=== PATIENT | female | born 1945 | race Asian ===

== ENCOUNTER 2023-01-10 05:27 | Inpatient (IN) ==
[2023-01-10 05:43] LABS: Hematocrit 34.3 % (35-45); Hemoglobin 11.1 g/dL (11.5-14.3); Mean Corpuscular Hemoglobin 22.1 pg (27-33); Mean Corpuscular Hgb Conc 32.5 g/dL (31-36); Mean Platelet Volume 8.3 fL (7.5-11.2); Platelet Count 230 10^3/uL (150-450); Red Blood Count 5.04 10^6/uL (3.63-4.92); Red Cell Distribution Width 15.2 % (12-17); White Blood Count 7.9 10^3/uL (3.8-11.8)
[2023-01-10 05:51] LABS: Activated Partial Thrombo Time 27.5 seconds (26.0-38.0); INR 1.07 (0.88-1.18)
[2023-01-10 06:00] LABS: ALT 19 U/L (7-52); Albumin/Globulin Ratio 1.4 (1-3); Alkaline Phosphatase 38 U/L (35-149); Blood Urea Nitrogen 41 mg/dL (6-24); CO2 Carbon Dioxide 20 mmol/L (22-32); Calcium 8.7 mg/dL (8.6-10.3); Chloride 103 mmol/L (101-111); Cholesterol 122 mg/dL; Creatinine, Serum 1.21 mg/dL (0.51-0.95); Globulin 2.9 g/dL (2-4); Glucose 150 mg/dL (70-100); HDL Cholesterol 52.5 mg/dL; LDL Cholesterol 52 mg/dL; Sodium 136 mmol/L (135-145); Total Protein 6.9 g/dL (6.4-8.9); Triglycerides 88 mg/dL; eGFR CKD-EPI 46.7 (>60)
[2023-01-10] MEDS ORDERED: Iodixanol (CONTRAST) 320 MG/ML 100 ML SDV IV ONE (06:02)
[2023-01-10 06:06] LABS: High Sens Troponin Baseline 12 pg/mL (<15)
[2023-01-10 06:15] LABS: Microcytosis 1+
[2023-01-10 06:17] LABS: ABS Basophils 0.1 10^3/uL (0.0-0.1); ABS Lymphocytes 1.1 10^3/uL (1.0-4.8); ABS Monocytes 0.4 10^3/uL (0.0-0.9); ABS Neutrophils 6.3 10^3/uL (1.5-7.6); Eosinophil % 0.5 %; Lymphocyte % 14.4 %
[2023-01-10 06:37] LABS: Anion Gap 13 mmol/L (2-16)
[2023-01-10 06:56] LABS: Direct Bilirubin 0.1 mg/dL (0.03-0.18); Potassium Redraw 3.4 mmol/L (3.5-5.0)
[2023-01-10 08:15] LABS: Urine Appearance Clear; Urine Bilirubin Negative (Negative); Urine Blood Negative (Negative); Urine Color Straw; Urine Glucose 3+(>=500 mg/dL) (Negative); Urine Ketones Negative (Negative); Urine Nitrite Negative (Negative); Urine Protein Negative (Negative); Urine Specific Gravity 1.018 (1.002-1.030); Urine Urobilinogen Negative (Negative)
[2023-01-10 08:19] LABS: Urine Bacteria Absent (Absent); Urine Red Blood Cell Trace(0-2/hpf) (Absent); Urine Squamous Epithelial Cell Present (Absent); Urine White Blood Cell Trace(0-5/hpf) (Absent)
[2023-01-10] MEDS ORDERED: NS 0.9% 1000 ml BAG 1,000 ML IV ONE (11:00)
[2023-01-11] MEDS: Levothyroxine 100 MCG/5 ML VIAL IV SCH (05:34)
[2023-01-11 06:49] LABS: Calcium 9.7 mg/dL (8.6-10.3); Creatinine, Serum 0.86 mg/dL (0.51-0.95); Magnesium 1.8 mg/dL (1.9-2.7); Potassium 3.1 mmol/L (3.5-5.0); eGFR CKD-EPI 70.4 (>60)
[2023-01-11] MEDS: KCL 20 MEQ/100 ML IVPREMIX 20 MEQ/100 ML BAG IV SCH ×2 (14:41→18:01)
[2023-01-11] MEDS ORDERED: Metoprolol Tartrate 5 mg VIAL 5 ml VIAL (1 mg/ml) IV ONE (15:33)
[2023-01-11] MEDS ORDERED: Lactated Ringers 1000 ml BAG 1,000 ML IV ONE (16:42)
[2023-01-11] MEDS ORDERED: Diltiazem Infusion @ 5 MG/HR - (MEDTELE ONLY, no titration) IV SCH ×2 (18:20→20:45)
[2023-01-11 18:43] LABS: Calcium 9.4 mg/dL (8.6-10.3); Creatinine, Serum 0.87 mg/dL (0.51-0.95); Potassium 3.7 mmol/L (3.5-5.0); eGFR CKD-EPI 69.4 (>60)
[2023-01-12] MEDS ORDERED: Magnesium Sulfate 2 gm BAG 2 GM/50 ML BAG IVPB ONE (02:50)
[2023-01-12] MEDS ORDERED: Lactated Ringers 1000 ml BAG 1,000 ML IV ONE (04:06)
[2023-01-12] MEDS: Levothyroxine 100 MCG/5 ML VIAL IV SCH (06:11)
[2023-01-12 07:08] LABS: Hematocrit 36.6 % (35-45); Hemoglobin 11.8 g/dL (11.5-14.3); Mean Corpuscular Hemoglobin 22.2 pg (27-33); Mean Corpuscular Hgb Conc 32.3 g/dL (31-36); Mean Corpuscular Volume 68.7 fL (80-97); Mean Platelet Volume 8.2 fL (7.5-11.2); Platelet Count 208 10^3/uL (150-450); Red Blood Count 5.32 10^6/uL (3.63-4.92); Red Cell Distribution Width 15.4 % (12-17); White Blood Count 8.9 10^3/uL (3.8-11.8)
[2023-01-12 07:22] LABS: Calcium 9.2 mg/dL (8.6-10.3); Creatinine, Serum 0.95 mg/dL (0.51-0.95); Magnesium 2.3 mg/dL (1.9-2.7); Potassium 3.9 mmol/L (3.5-5.0); eGFR CKD-EPI 62.5 (>60)
[2023-01-13] MEDS: Levothyroxine 100 MCG/5 ML VIAL IV SCH (05:53)
[2023-01-14 06:33] VITALS: BP 161/77
== END 2023-01-14 10:31 | DRG 65 ==
LOC: EDHOLD 05:27 → ED 05:27 → SUATTDRO 14:40 → MEDTELE 14:57
PROVIDERS: ADMIT Student in an Organized Health Care Education/Training Program; ATTEND Internal Medicine

== ENCOUNTER 2023-01-14 09:24 | Inpatient (IN) ==
[2023-01-14] MEDS ORDERED: Senna TAB 8.6 mg TAB PO PRN (12:26)
[2023-01-14] MEDS ORDERED: Dextrose 50% Syringe 50 ml 25 GM/50 ML SYRINGE IV PUSH PRN (12:34)
[2023-01-14] MEDS: Heparin 5000 UNITS/ML 1 mL VIAL SUBCUT SCH (20:16)
[2023-01-15] MEDS: Empagliflozin 25 MG TAB PO SCH (09:42)
[2023-01-15] MEDS: Aspirin EC 81 mg TAB.EC (enteric coated) PO SCH (09:43)
[2023-01-15] MEDS: Heparin 5000 UNITS/ML 1 mL VIAL SUBCUT SCH ×2 (09:44→21:38)
[2023-01-16 06:10] LABS: ABS Basophils 0.1 10^3/uL (0.0-0.1); ABS Eosinophils 0.2 10^3/uL (0.0-0.5); ABS Lymphocytes 1.7 10^3/uL (1.0-4.8); ABS Monocytes 0.5 10^3/uL (0.0-0.9); ABS Neutrophils 3.1 10^3/uL (1.5-7.6); ABS Nucleated RBC 0.01 10^3/ul; Eosinophil % 4.3 %; Hemoglobin 11.2 g/dL (11.5-14.3); Lymphocyte % 30.2 %; Mean Corpuscular Hemoglobin 22.2 pg (27-33); Mean Corpuscular Hgb Conc 32.8 g/dL (31-36); Mean Corpuscular Volume 67.9 fL (80-97); Mean Platelet Volume 7.9 fL (7.5-11.2); Nucleated Red Blood Cells % 0.1 /100 WBC (0.0-0.4); Platelet Count 206 10^3/uL (150-450); Red Blood Count 5.02 10^6/uL (3.63-4.92); Red Cell Distribution Width 15.2 % (12-17); White Blood Count 5.6 10^3/uL (3.8-11.8)
[2023-01-16 06:31] LABS: Albumin/Globulin Ratio 1.3 (1-3); Calcium 9.4 mg/dL (8.6-10.3); Creatinine, Serum 0.86 mg/dL (0.51-0.95); Potassium 3.9 mmol/L (3.5-5.0); Total Bilirubin 0.8 mg/dL (0.2-1.0); eGFR CKD-EPI 70.4 (>60)
[2023-01-16] MEDS: Heparin 5000 UNITS/ML 1 mL VIAL SUBCUT SCH ×2 (09:28→20:36)
[2023-01-16] MEDS: Empagliflozin 25 MG TAB PO SCH (09:28)
[2023-01-16] MEDS: Aspirin EC 81 mg TAB.EC (enteric coated) PO SCH (09:28)
[2023-01-17] MEDS: Empagliflozin 25 MG TAB PO SCH (09:31)
[2023-01-18] MEDS: Empagliflozin 25 MG TAB PO SCH (07:58)
[2023-01-19] MEDS: Empagliflozin 25 MG TAB PO SCH (09:17)
[2023-01-20] MEDS: Empagliflozin 25 MG TAB PO SCH (07:33)
[2023-01-20 16:52] VITALS: BP 108/81
== END 2023-01-20 22:07 | disposition short-term general hospital (02) | DRG 65 ==
LOC: PMRU 12:00 → MEDTELE 01-20 20:31
PROVIDERS: ADMIT Physical Medicine & Rehabilitation; ATTEND Physical Medicine & Rehabilitation

== ENCOUNTER 2023-01-20 17:46 | Observation (INO) ==
[2023-01-20] MEDS ORDERED: Senna TAB 8.6 mg TAB PO PRN (17:58)
[2023-01-20] MEDS ORDERED: Dextrose 50% Syringe 50 ml 25 GM/50 ML SYRINGE IV PUSH PRN (18:29)
[2023-01-20 21:00] LABS: ABS Basophils 0.1 10^3/uL (0.0-0.1); ABS Eosinophils 0.1 10^3/uL (0.0-0.5); ABS Lymphocytes 1.9 10^3/uL (1.0-4.8); ABS Monocytes 0.5 10^3/uL (0.0-0.9); ABS Neutrophils 3.6 10^3/uL (1.5-7.6); ABS Nucleated RBC 0.01 10^3/ul; Hematocrit 37.5 % (35-45); Hemoglobin 12.3 g/dL (11.5-14.3); Lymphocyte % 30.8 %; Mean Corpuscular Hemoglobin 22.4 pg (27-33); Mean Corpuscular Hgb Conc 32.8 g/dL (31-36); Mean Corpuscular Volume 68.4 fL (80-97); Nucleated Red Blood Cells % 0.1 /100 WBC (0.0-0.4); Platelet Count 269 10^3/uL (150-450); Red Blood Count 5.48 10^6/uL (3.63-4.92); Red Cell Distribution Width 15.5 % (12-17); White Blood Count 6.1 10^3/uL (3.8-11.8)
[2023-01-20 21:18] LABS: Calcium 9.6 mg/dL (8.6-10.3); Creatinine, Serum 1.04 mg/dL (0.51-0.95); Potassium 4.2 mmol/L (3.5-5.0)
[2023-01-21 06:59] LABS: ABS Basophils 0.1 10^3/uL (0.0-0.1); ABS Eosinophils 0.1 10^3/uL (0.0-0.5); ABS Lymphocytes 2.1 10^3/uL (1.0-4.8); ABS Monocytes 0.6 10^3/uL (0.0-0.9); ABS Neutrophils 2.4 10^3/uL (1.5-7.6); Eosinophil % 2.3 %; Hematocrit 37.3 % (35-45); Hemoglobin 12.3 g/dL (11.5-14.3); Lymphocyte % 40.1 %; Mean Corpuscular Hemoglobin 22.5 pg (27-33); Mean Corpuscular Hgb Conc 32.9 g/dL (31-36); Mean Corpuscular Volume 68.5 fL (80-97); Nucleated Red Blood Cells % 0.1 /100 WBC (0.0-0.4); Platelet Count 259 10^3/uL (150-450); Red Blood Count 5.44 10^6/uL (3.63-4.92); Red Cell Distribution Width 15.1 % (12-17); White Blood Count 5.2 10^3/uL (3.8-11.8)
[2023-01-21 07:21] LABS: Calcium 9.1 mg/dL (8.6-10.3); Creatinine, Serum 0.93 mg/dL (0.51-0.95); Potassium 3.9 mmol/L (3.5-5.0); eGFR CKD-EPI 64.1 (>60)
[2023-01-21] MEDS: Empagliflozin 25 MG TAB PO SCH (07:38)
[2023-01-21 12:26] LABS: Urine Osmo 406 mOsm/kg (150-1150)
[2023-01-21] MEDS: Lactated Ringers 1000 ml BAG 1,000 ML IV SCH ×2 (14:40→21:22)
[2023-01-21 21:26] LABS: Calcium 9.2 mg/dL (8.6-10.3); Creatinine, Serum 0.9 mg/dL (0.51-0.95); Potassium 4.2 mmol/L (3.5-5.0); eGFR CKD-EPI 66.7 (>60)
[2023-01-21 22:09] LABS: High Sensitivity Troponin 1 Hr 15 pg/mL (<15)
[2023-01-21] MEDS ORDERED: Al Hydrox/Mg Hydrox/Simet LIQ 30 ML UDC PO ONE (23:17)
[2023-01-22 06:06] LABS: ABS Eosinophils 0.1 10^3/uL (0.0-0.5); ABS Lymphocytes 1.5 10^3/uL (1.0-4.8); ABS Monocytes 0.3 10^3/uL (0.0-0.9); ABS Nucleated RBC 0.01 10^3/ul; Eosinophil % 2.7 %; Hematocrit 32.8 % (35-45); Hemoglobin 10.6 g/dL (11.5-14.3); Lymphocyte % 38.1 %; Mean Corpuscular Hemoglobin 22.1 pg (27-33); Mean Corpuscular Hgb Conc 32.3 g/dL (31-36); Mean Corpuscular Volume 68.2 fL (80-97); Mean Platelet Volume 8.3 fL (7.5-11.2); Nucleated Red Blood Cells % 0.2 /100 WBC (0.0-0.4); Platelet Count 237 10^3/uL (150-450); Red Blood Count 4.81 10^6/uL (3.63-4.92); Red Cell Distribution Width 15.4 % (12-17)
[2023-01-22] MEDS: Lactated Ringers 1000 ml BAG 1,000 ML IV SCH (06:13)
[2023-01-22 06:21] LABS: Creatinine, Serum 0.74 mg/dL (0.51-0.95); Potassium 3.9 mmol/L (3.5-5.0); eGFR CKD-EPI 84.3 (>60)
[2023-01-22] MEDS: Empagliflozin 25 MG TAB PO SCH (08:50)
[2023-01-22 10:21] VITALS: BP 155/74
== END 2023-01-22 12:57 | disposition home or self-care (01) ==
LOC: SUATTDRO 17:49 → INTOOBSV 22:07 → MEDTELE 22:07
PROVIDERS: ADMIT Internal Medicine; ATTEND Internal Medicine

== ENCOUNTER 2024-04-14 12:30 | Inpatient (IN) ==
[2024-04-14] MEDS ORDERED: Prochlorperazine 5 mg/ml 2 ml VIAL (10 mg) ONE (13:56)
[2024-04-14] MEDS: Iodixanol 320 (CONTRAST) 200 ML SDV IV ONE (14:06)
[2024-04-14] MEDS: Prochlorperazine 5 mg/ml 2 ml VIAL (10 mg) IV ONE (14:12)
[2024-04-14 14:24] LABS: Activated Partial Thrombo Time 32.1 seconds (26.0-38.0); Hematocrit 40.1 % (35-45); Hemoglobin 12.3 g/dL (11.5-14.3); INR 1.2 (0.85-1.14); Mean Corpuscular Hemoglobin 21.3 pg (27-33); Mean Corpuscular Hgb Conc 30.6 g/dL (31-36); Mean Corpuscular Volume 69.6 fL (80-97); Mean Platelet Volume 8.5 fL (7.5-11.2); Platelet Count 203 10^3/uL (150-450); Red Blood Count 5.77 10^6/uL (3.63-4.92); White Blood Count 8.6 10^3/uL (3.8-11.8)
[2024-04-14 14:57] LABS: Albumin 4.6 g/dL (3.2-5.2); Albumin/Globulin Ratio 1.6 (1-3); C Reactive Protein 1.12 mg/L (<8.01); Calcium 9.3 mg/dL (8.6-10.3); Creatinine, Serum 1.11 mg/dL (0.51-0.95); Globulin 2.8 g/dL (2-4); HDL Cholesterol 45.7 mg/dL; Potassium 3.9 mmol/L (3.5-5.0); Total Bilirubin 0.9 mg/dL (0.2-1.0); Total Protein 7.4 g/dL (6.4-8.9); eGFR CKD-EPI 51.5 (>60)
[2024-04-14 15:35] LABS: ABS Lymphocytes 1.5 10^3/uL (1.0-4.8); ABS Monocytes 0.3 10^3/uL (0.0-0.9); ABS Neutrophils 6.7 10^3/uL (1.5-7.6); ABS Nucleated RBC 0.01 10^3/ul; Anisocytosis 1+; Eosinophil % 0.5 %; Lymphocyte % 17.6 %; Microcytosis 3+; Nucleated Red Blood Cells % 0.1 %/100WBC (0.0-0.8)
[2024-04-14 16:08] LABS: High Sensitivity Troponin 1 Hr 11 pg/mL (<15)
[2024-04-14] MEDS: niCARdipine 0.1MG/ML IVPREMIX 20 MG/200 ML BAG IV SCH (16:09)
[2024-04-14] MEDS ORDERED: Dextrose 50% Syringe 50 ml 25 GM/50 ML SYRINGE IV PUSH PRN (18:30)
[2024-04-14] MEDS ORDERED: Sulfur Hexaflouride MICROSPHR 25 MG VIAL IV PRN (20:23)
[2024-04-14 21:04] LABS: TSH Ultra Thyroid Stim Horm 0.57 mcIU/mL (0.34-5.60)
[2024-04-14] MEDS: Empagliflozin 25 MG TAB PO SCH (21:04)
[2024-04-15] MEDS: Aspirin EC 81 mg TAB.EC (enteric coated) PO ONE (00:28)
[2024-04-15 00:50] LABS: Calcium 9.5 mg/dL (8.6-10.3); Potassium 4.2 mmol/L (3.5-5.0); eGFR CKD-EPI 58.4 (>60)
[2024-04-15 06:47] LABS: Calcium 9.5 mg/dL (8.6-10.3); Creatinine, Serum 0.91 mg/dL (0.51-0.95); Potassium 3.9 mmol/L (3.5-5.0); eGFR CKD-EPI 65.4 (>60)
[2024-04-15 06:48] LABS: ABS Lymphocytes 1.3 10^3/uL (1.0-4.8); ABS Monocytes 0.9 10^3/uL (0.0-0.9); ABS Neutrophils 7.3 10^3/uL (1.5-7.6); Eosinophil % 0.2 %; Hematocrit 37.8 % (35-45); Hemoglobin 11.8 g/dL (11.5-14.3); Lymphocyte % 13.9 %; Mean Corpuscular Hemoglobin 21.5 pg (27-33); Mean Corpuscular Hgb Conc 31.1 g/dL (31-36); Mean Corpuscular Volume 69.1 fL (80-97); Mean Platelet Volume 8.7 fL (7.5-11.2); Platelet Count 199 10^3/uL (150-450); Red Blood Count 5.47 10^6/uL (3.63-4.92); Red Cell Distribution Width 15.8 % (12-17); White Blood Count 9.6 10^3/uL (3.8-11.8)
[2024-04-15 13:54] LABS: Urine Appearance Clear; Urine Bilirubin Negative (Negative); Urine Blood Negative (Negative); Urine Color Light-Yellow; Urine Glucose 4+ (>=1000 mg/dL) (Negative); Urine Ketones 1+ (Negative); Urine Nitrite Negative (Negative); Urine Protein Trace (Negative); Urine Urobilinogen Negative (Negative); Urine pH 5.5 (5.0-8.0)
[2024-04-15] MEDS: Digoxin IV 0.5 MG/2 ML AMP (0.25 MG/ML) IV SLOW PU ONE ×2 (16:06→17:07)
[2024-04-15] MEDS: Digoxin IV 0.5 MG/2 ML AMP (0.25 MG/ML) ONE (17:06)
[2024-04-15] MEDS: Aspirin EC 81 mg TAB.EC (enteric coated) PO SCH (21:00)
[2024-04-15] MEDS: Metoprolol Tartrate 5 mg VIAL 5 ml VIAL (1 mg/ml) IV ONE (21:57)
[2024-04-16] MEDS: Metoprolol Tartrate 5 mg VIAL 5 ml VIAL (1 mg/ml) IV ONE ×3 (06:44→16:41)
[2024-04-16 06:49] LABS: ABS Eosinophils 0.2 10^3/uL (0.0-0.5); ABS Lymphocytes 2.1 10^3/uL (1.0-4.8); ABS Monocytes 0.7 10^3/uL (0.0-0.9); ABS Neutrophils 5.5 10^3/uL (1.5-7.6); Eosinophil % 1.9 %; Hematocrit 42.8 % (35-45); Hemoglobin 13.6 g/dL (11.5-14.3); Lymphocyte % 24.3 %; Mean Corpuscular Hemoglobin 22.1 pg (27-33); Mean Corpuscular Hgb Conc 31.7 g/dL (31-36); Mean Corpuscular Volume 69.7 fL (80-97); Mean Platelet Volume 8.6 fL (7.5-11.2); Platelet Count 204 10^3/uL (150-450); Red Blood Count 6.15 10^6/uL (3.63-4.92); Red Cell Distribution Width 15.4 % (12-17); White Blood Count 8.4 10^3/uL (3.8-11.8)
[2024-04-16 07:11] LABS: Calcium 9.5 mg/dL (8.6-10.3); Creatinine, Serum 0.89 mg/dL (0.51-0.95); Potassium 4.2 mmol/L (3.5-5.0); eGFR CKD-EPI 67.1 (>60)
[2024-04-16] MEDS: Ondansetron 4 mg VIAL 2 MG/ML 2 ml VIAL IV PRN (13:07)
[2024-04-17 04:54] LABS: ABS Eosinophils 0.2 10^3/uL (0.0-0.5); ABS Lymphocytes 2.7 10^3/uL (1.0-4.8); ABS Monocytes 0.7 10^3/uL (0.0-0.9); ABS Neutrophils 4.7 10^3/uL (1.5-7.6); ABS Nucleated RBC 0.01 10^3/ul; Eosinophil % 2.3 %; Hematocrit 43.8 % (35-45); Hemoglobin 13.9 g/dL (11.5-14.3); Lymphocyte % 32.7 %; Mean Corpuscular Hgb Conc 31.7 g/dL (31-36); Mean Corpuscular Volume 69.4 fL (80-97); Mean Platelet Volume 8.4 fL (7.5-11.2); Nucleated Red Blood Cells % 0.1 %/100WBC (0.0-0.8); Platelet Count 214 10^3/uL (150-450); Red Blood Count 6.31 10^6/uL (3.63-4.92); Red Cell Distribution Width 15.8 % (12-17); White Blood Count 8.3 10^3/uL (3.8-11.8)
[2024-04-17 05:11] LABS: Calcium 9.2 mg/dL (8.6-10.3); Creatinine, Serum 0.88 mg/dL (0.51-0.95); Magnesium 1.9 mg/dL (1.9-2.7); Potassium 4.2 mmol/L (3.5-5.0); eGFR CKD-EPI 68.1 (>60)
[2024-04-17] MEDS ORDERED: Polyethylene Glycol 3350 17 GM PACKET PO PRN (17:40)
[2024-04-17] MEDS: Senna TAB 8.6 mg TAB PO SCH (18:11)
[2024-04-17] MEDS: Magnesium CITRATE LIQ 300 ML BTL PO ONE (18:27)
[2024-04-18 06:35] LABS: ABS Basophils 0.1 10^3/uL (0.0-0.1); ABS Eosinophils 0.2 10^3/uL (0.0-0.5); ABS Lymphocytes 2.5 10^3/uL (1.0-4.8); ABS Monocytes 0.6 10^3/uL (0.0-0.9); ABS Neutrophils 3.9 10^3/uL (1.5-7.6); ABS Nucleated RBC 0.01 10^3/ul; Eosinophil % 2.9 %; Hematocrit 40.2 % (35-45); Hemoglobin 12.5 g/dL (11.5-14.3); Lymphocyte % 35.2 %; Mean Corpuscular Hemoglobin 21.6 pg (27-33); Mean Corpuscular Hgb Conc 31.1 g/dL (31-36); Mean Corpuscular Volume 69.5 fL (80-97); Mean Platelet Volume 8.7 fL (7.5-11.2); Nucleated Red Blood Cells % 0.1 %/100WBC (0.0-0.8); Platelet Count 204 10^3/uL (150-450); Red Blood Count 5.79 10^6/uL (3.63-4.92); Red Cell Distribution Width 15.4 % (12-17); White Blood Count 7.2 10^3/uL (3.8-11.8)
[2024-04-18 06:52] LABS: Calcium 9.2 mg/dL (8.6-10.3); Creatinine, Serum 0.94 mg/dL (0.51-0.95); Magnesium 2.2 mg/dL (1.9-2.7); Potassium 4.4 mmol/L (3.5-5.0); eGFR CKD-EPI 62.9 (>60)
[2024-04-18 14:24] VITALS: BP 154/65
== END 2024-04-18 15:50 | disposition home or self-care (01) | DRG 66 ==
LOC: ED 12:30 → EDHOLD 12:30 → MEDTELE 17:49 → SUATTDRO 04-16 15:03
PROVIDERS: ADMIT Student in an Organized Health Care Education/Training Program; ATTEND Internal Medicine